=== PATIENT | female | born 1965 | race Caucasian/White ===

== ENCOUNTER 2017-02-01 11:39 | Inpatient (IN) | payer OTHER ==
[~2017-02-01] VITALS: Ht 157.5 cm; Wt 49.9 kg
[2017-02-01 11:47] VITALS: BP 133/59
--- NOTE | 2017-02-01 12:08 | NUR ---
Patient ambulated to bed 5. RN evaluating patient at bedside.
--- NOTE | 2017-02-01 12:10 | NUR ---
51F BIB FAMILY C/O FLU LIKE SYMPTOMS AND GENERALIZED WEAKNESS x 3 DAYS. PT STATES HAS BEEN VOMITING X 2 DAYS, BUT DENIES DIARRHEA AT THIS TIME; PT STATES HAD 1 EPISODE OF VOMITING TODAY; ABDOMEN SOFT, NON-TENDER, ACTIVE BOWEL SOUNDS X 4 QUADRANTS; PT C/O PRESSURE TO RT ANKLE, RADIATES UP RT LEG, 07/21 X 3 DAYS; PT STATES " I MUST HAVE FELL WHEN I WAS VOMITING"; STATES UNSURE IF LOC; NO SWELLING OR OBVIOUS DEFORMITIES NOTED TO RT ANKLE AT THIS TIME; RT CAP REFILL < 3 SECONDS, RT PEDAL PULSE PALPABLE, NO LOSS OF SENSATION TO RT FOOT AT THIS TIME; A&OX4, PERRL, PT DENIES HEADACHE, BLURRY VISION, OR VISION CHANGES AT THIS TIME; BL LUNG SOUNDS CLEAR, RR EVEN/UNLABORED, SKIN IS WARM/DRY/INTACT. PT NOTED W/ SCAR TO RT HIP; HX: RENAL DISEASE. PT RESTING IN BED W/ HOB ELEVATED AND IN LOWEST POSITION; POSITIONED FOR COMFORT; ER MD MADE AWARE OF STATUS. WILL CONTINUE TO MONITOR.
[2017-02-01] MEDS ORDERED: NACL 0.9% 1,000 ML IV ONE (12:38)
[2017-02-01] MEDS ORDERED: ONDANSETRON 4 MG/2 ML VIAL IVP ONE (12:40)
--- NOTE | 2017-02-01 13:22 | NUR ---
XRAY AT BEDSIDE.
--- NOTE | 2017-02-01 13:25 | NUR ---
PT TAKEN TO CT VIA SONIA, ACCOMPANIED BY WEAVING SUPERVISOR AT THIS TIME.
--- NOTE | 2017-02-01 14:00 | NUR ---
Patient appears to be resting comfortably in bed. Vital Signs within normal limits. Respirations even and unlabored. FAMILY AT BEDSIDE. WILL CONTINUE TO MONITOR.
[2017-02-01] MEDS ORDERED: MORPHINE SULFATE 2 MG/ML SYR IVP ONE (14:30)
--- NOTE | 2017-02-01 15:06 | NUR ---
US AT BEDSIDE.
--- NOTE | 2017-02-01 15:15 | NUR ---
Dr. Fernandez Anthony evaluating patient at bedside. (Surgery)
[2017-02-01] MEDS ORDERED: cefTRIAXone 1,000 MG VIAL ONE (15:24)
[2017-02-01] MEDS: NACL 0.9% 1,000 ML IV SCH ×2 (15:36→19:31)
[2017-02-01] MEDS ORDERED: HYDROmorphone 1 MG/ML AMP IVP SCH (15:40)
[2017-02-01] MEDS ORDERED: HYDROmorphone 1 MG/ML AMP IVP ONE (15:40)
[2017-02-01] MEDS ORDERED: ONDANSETRON 4 MG/2 ML VIAL IVP PRN (15:40)
--- NOTE | 2017-02-01 16:06 | NUR ---
REPORT GIVEN TO AMY ALBA AT [facility].
--- NOTE | 2017-02-01 16:17 | NUR ---
Patient will be admitted to care of DR. MCKAY ( DR. LACHELLE VIVAS SURG[facility] CONSULT). Admited to [facility]. Will go to room 120B. Belongings list completed. Report to AMY ALBA.
[2017-02-01 16:35] VITALS: BP 113/64
--- NOTE | 2017-02-01 16:35 | NUR ---
RECEIVED PT ON UNIT VIA [employer], PT IS A/OX4, IV IS ON THE LT ANKLE, PATENT, INTACT, INFUSING WELL, PT HAS AN OLD RIGHT HIP SURGICAL SCARE, SKIN IS INTACT, PT AMBULATES WITH ASSIST, INITIAL ASSESSMENT DONE, NO S/S OF RESPIRATORY DISTRESS OR DISCOMFORT NOTED, DISCUSSED PLAN OF CARE WITH PT, PT VERBALIZED UNDERSTANDING, IS AT BEDSIDE, SAFETY/FALL PRECAUTIONS IN PLACE, ORIENTED PT TO ROOM, CALL LIGHT WITHIN REACH, WILL CONTINUE TO MONITOR.
--- NOTE | 2017-02-01 18:28 | NUR ---
PT SITTING IN BED WATCHING TV. CALL LIGHT WITHIN REACH.
--- NOTE | 2017-02-01 19:25 | NUR ---
ENDORSED PT TO AMY BAUER. FOR CONTINUITY OF CARE, PT STABLE AT THIS TIME.
--- NOTE | 2017-02-01 19:25 | NUR ---
RECEIVED REPORT FROM MORNING SHIFT NURSE AT BEDSIDE, PT IS AAOX4, ABLE TO FOLLOW COMMANDS AND MAKE NEEDS KNOWN. DENIES PAIN, NO SOB/DISTRESS NOTED, BREATHING EVEN AND UNLABORED, ON RA. TELE MONITOR WITH SR. SOFT ABD WITH ACTIVE BOWEL SOUNDS, CURRENTLY ON NPO. IV SITE TO LEFT ANKLE 24GA RUNNING WITH NC. AFEBRILE, SKIN IS INTACT, WARM AND DRY TO TOUCH. ABLE TO MOVE ALL EXTREMITIES, AMBULATE WITH ASSIST. EXPLAINED POC TO PT, PT VERBALIZED UNDERSTANDING, SAFETY MEASURE MAINTAINED, SCDS TO JULIAN.BLE. VSS. CALL LIGHT WITHIN REACH, WILL CONTINUE TO MONITOR.
[2017-02-01 20:00] VITALS: BP 119/62
[2017-02-01] MEDS: MORPHINE SULFATE 2 MG/ML SYR IVP PRN (20:35)
[2017-02-01] MEDS ORDERED: PIPERACILLIN/TAZOBACTAM 3.375 GM in DEXTROSE 5% 50 ML IV SCH (21:00)
--- NOTE | 2017-02-01 21:20 | NUR ---
PT OFF UNIT FOR HIDA SCAN.
[2017-02-01] MEDS ORDERED: PIPERACILLIN/TAZOBACTAM 3.375 GM VIAL IV ONE (21:48)
[2017-02-01] MEDS: PIPER/TAZO 3.375GM/D5W PREMIX 50 ML IV SCH (21:53)
--- NOTE | 2017-02-01 22:45 | NUR ---
PT IS TRANSFERRED BACK TO ROOM VIA WHEELCHAIR. VSS.
--- NOTE | 2017-02-01 23:20 | NUR ---
PT IS OFF UNIT FOR SEC PART OF HIDA SCAN.
--- NOTE | 2017-02-01 23:50 | NUR ---
PT IS BACK TO ROOM.
--- NOTE | 2017-02-02 02:15 | NUR ---
PT C/O SEVERE PAIN TO RIGHT HIP, 10/10, AND COULD NOT REST, MEDICATED AND EDUCATED.
[2017-02-02] MEDS: MORPHINE SULFATE 4 MG/ML SYR IVP PRN ×4 (02:19→20:39)
[2017-02-02 04:00] VITALS: BP 122/67
--- NOTE | 2017-02-02 04:00 | NUR ---
NO CHANGE OF CONDITION AT THIS TIME. VSS.
[2017-02-02] MEDS: PIPER/TAZO 3.375GM/D5W PREMIX 50 ML IV SCH ×3 (04:52→20:39)
[2017-02-02] MEDS: NACL 0.9% 1,000 ML IV SCH ×3 (06:25→23:36)
--- NOTE | 2017-02-02 07:18 | NUR ---
PT IS RESTING IN BED, NO CHANGE OF CONDITION AT THIS TIME, REPORT GIVEN TO MORNING SHIFT NURSE FOR CONTINUE OF CARE.
[2017-02-02 08:00] VITALS: BP 120/75
--- NOTE | 2017-02-02 08:06 | NUR ---
PATIENT HAS BEEN SCREENED AND CATEGORIZED MODERATE NUTRITION RISK. PATIENT WILL BE SEEN WITHIN 3-5 DAYS OF ADMISSION. 02/04/17-02/06/[address]
[2017-02-02] MEDS: MORPHINE SULFATE 2 MG/ML SYR IVP PRN (08:15)
[2017-02-02] MEDS ORDERED: MAG SULF 2000 MG/WATER PREMIX 50 ML IV SCH (10:30)
[2017-02-02 12:00] VITALS: BP 132/63
--- NOTE | 2017-02-02 13:22 | NUR ---
FOLLOWED UP WITH DR. VIVAS REGARDING PT STATUS, IF PT WILL HAVE SURGERY TODAY. HE SAID HE'S NOT PLANNING ON DOING SURGERY WITH THE PT TODAY. AND PT CAN RESUME HER DIET.
--- NOTE | 2017-02-02 13:26 | NUR ---
CALLED DR. MCKAY' OFFICE FOR A DIET ORDER. AWAITING CALL BACK.
--- NOTE | 2017-02-02 13:32 | NUR ---
DR. MCKAY CALLED BACK WITH NEW ORDER FOR REGULAR DIET. PT MADE AWARE.
--- NOTE | 2017-02-02 16:00 | NUR ---
PT WAS SEEN BY DR NAPOLES EXPLAINED TO PT REASON FOR NPO AND THAT DR HERNANDEZ (SURGEON) IS COMING TO SEE PT. PT VERBALIZED UNDERSTANDING. Addendum: 02/02/17 at 1755 by Kaylee White RN DISREGARD ABOVE DOCUMENTATION. WRONG PT.
[2017-02-02 16:11] VITALS: BP 141/69
--- NOTE | 2017-02-02 19:35 | NUR ---
PT ASLEEP. AWAKEN TO VOICE. NO SOB NOTED. AND DENIES PAIN AT THIS TIME. ENDORSED TO UPCOMING SHIFT ON STABLE CONDITION.
--- NOTE | 2017-02-02 19:36 | NUR ---
RECD. RESTING IN BED, AWAKE, A/OX4. RESPIRATION EVEN AND UNLABORED. IV OF NS AT 125 ML/HR INFUSING, LEFT ANKLE G24. PAIN IN THE RIGHT HIP 11/21, WILL MEDICATE ORDERED. PLAN OF CARE FOR THE SHIFT DISCUSSED. VERBALIZED UNDERSTANDING. SAFETY MEASURES ENFORCED.
--- NOTE | 2017-02-02 20:00 | NUR ---
Patient's Plan of Care was discussed and reviewed with HAMMER ADJUSTER: CHRISTOPHER SMALL
[2017-02-02] MEDS: MAGNESIUM OXIDE 400 MG TAB PO SCH (21:00)
--- NOTE | 2017-02-02 21:05 | NUR ---
ASSISTED WITH BED REILLY, ABLE TO VOID 100 ML OF DARK YELLOW URINE.
[2017-02-03] VITALS: BP 129/62
--- NOTE | 2017-02-03 | NUR ---
ASSISTED WITH BEDPAN, WIPES GIVEN, INDEPENDENT, ABLE TO DO SELF STEFANO CARE.
[2017-02-03 02:52] VITALS: BP 135/62
--- NOTE | 2017-02-03 03:00 | NUR ---
SLEEPING COMFORTABLY IN BED.
[2017-02-03] MEDS: MORPHINE SULFATE 4 MG/ML SYR IVP PRN (03:16)
[2017-02-03] MEDS: PIPER/TAZO 3.375GM/D5W PREMIX 50 ML IV SCH ×2 (05:06→13:05)
[2017-02-03 05:17] VITALS: BP 115/67
[2017-02-03] MEDS: MORPHINE SULFATE 2 MG/ML SYR IVP PRN ×2 (05:21→10:03)
--- NOTE | 2017-02-03 06:30 | NUR ---
CONDITION REMAIN STABLE. WILL ENDORSE TO AM NURSE FOR CONTINUITY OF CARE.
--- NOTE | 2017-02-03 07:08 | NUR ---
ENDORSED TO AMY KING FOR CONTINUITY OF CARE.
--- NOTE | 2017-02-03 07:30 | NUR ---
RECEIVED REPORT FROM NIGHT NURSE. PT RESTING IN BED, AOX4, ABLE TO VERBALIZE NEEDS. IV ACCESS ASYMPTOMATIC, PATENT AND INTACT. IVF INFUSING WELL. INITIAL ASSESSMENT COMPLETED. RIGHT HIP SCAR NOTED. SCDS IN PLACE. ASSISTED PT WITH ADLS, PT TOLERATED WELL. NO CP, SOB OR ACUTE DISTRESS. SAFETY MEASURES IN PLACE. CALL LIGHT WITHIN REACH. WILL CONTINUE TO MONITOR. DISCUSSED AND REVIEWED PLAN OF CARE WITH PT, PT VERBALIZES UNDERSTANDING.
[2017-02-03] MEDS: NACL 0.9% 1,000 ML IV SCH ×2 (07:36→15:36)
[2017-02-03 08:00] VITALS: BP 126/63
[2017-02-03] MEDS: MAGNESIUM OXIDE 400 MG TAB PO SCH (09:00)
[2017-02-03] MEDS ORDERED: MAG SULF 2000 MG/WATER PREMIX 50 ML IV ONE (09:30)
[2017-02-03] MEDS ORDERED: HYDROcodone/APAP 10/325 MG 1 TAB TAB PO PRN (09:35)
[2017-02-03] MEDS ORDERED: HYDROcodone/APAP 5/325 MG 1 TAB TAB PO PRN (09:35)
[2017-02-03] MEDS ORDERED: MAG SULF 2000 MG/WATER PREMIX 50 ML IV SCH (09:39)
[2017-02-03] MEDS ORDERED: ACETAMINOPHEN-H1 TA3 PO (09:53)
--- NOTE | 2017-02-03 10:12 | NUR ---
CM NOTE CONCURRENT REVIEW SENT TO [facility] FAX# [phone] PH# RACHEL [phone] MARCH [phone]
--- NOTE | 2017-02-03 10:15 | NUR ---
PT SEEN BY DR MCKAY, DISCUSSED PT CONDITION AND DC PLAN. NEW ORDERS ACKNOWLEDGED AND CARRIED OUT. VSS. MEDICATED WITH MORPHINE IVP FOR C/O RIGHT HIP PAIN, SEE PAIN ASSESSMENT. MAGRIDER ADMINISTERED ORDERED WITH EDUCATION. WILL CONTINUE TO MONITOR PT.
[2017-02-03] MEDS: MAG SULF 2000 MG/WATER PREMIX 100 ML IV SCH ×2 (10:16→14:06)
--- NOTE | 2017-02-03 13:18 | NUR ---
DUE MEDICATION ADMINISTERED WITH EDUCATION. PT VERBALIZES UNDERSTANDING. PT TOLERATED WELL. IVF INFUSING WELL. PT C/O NAUSEA. ZOFRAN ADMINISTERED NEEDED. PT TOLERATED WELL. ASSISTED PT WITH ADLS. ALL NEEDS MET. SAFETY MEASURES ENSURED. CALL LIGHT WITHIN REACH. WILL CONTINUE TO MONITOR.
--- NOTE | 2017-02-03 14:08 | NUR ---
SECOND BAG OF IV MAGNESIUM ADMINISTERED WITH EDUCATION PER DR MCKAY. IVF INFUSING WELL. PT TOLERATED WELL. ASSISTED PT WITH ADLS. ALL NEEDS MET. SAFETY MEASURES ENSURED. CALL LIGHT WITHIN REACH. WILL CONTINUE TO MONITOR.
[2017-02-03 16:00] VITALS: BP 125/82
[2017-02-03 16:36] VITALS: BP 125/82
--- NOTE | 2017-02-03 17:25 | NUR ---
DISCHARGE INSTRUCTIONS AND EDUCATION GIVEN TO PT. PT VERBALIZES UNDERSTANDING. IV SITE REMOVED, CANNULA INTACT. PT TOLERATED WELL. NO C/O CP, SOB OR ACUTE DISTRESS. CONDITION STABLE. PT SIGNIFICANT OTHER AT BEDSIDE, ACCOMPANYING PT. BELONGINGS CHECKED. PT DISCHARGED VIA WHEELCHAIR.
[2017-02-03] MEDS ORDERED: MAGNESIUM OXIDE 400 MG TAB PO SCH (21:00)
== END 2017-02-03 17:25 | disposition home or self-care (01) ==
LOC: MED 11:39 → MTU 15:40
PROVIDERS: ADMIT Hospitalist; ATTEND Hospitalist
DX: K81.0 Acute cholecystitis (principal); R64 Cachexia; K85.10 Biliary acute pancreatitis without necrosis or infection; N39.0 Urinary tract infection, site not specified; Z93.6 Other artificial openings of urinary tract status; N18.9 Chronic kidney disease, unspecified; G89.29 Other chronic pain; S93.401A Sprain of unspecified ligament of right ankle, initial encounter; R74.0 Nonspecific elevation of levels of transaminase and lactic acid dehydrogenase [LDH]; E80.6 Other disorders of bilirubin metabolism; K81.1 Chronic cholecystitis; M25.551 Pain in right hip; R79.89 Other specified abnormal findings of blood chemistry; R19.7 Diarrhea, unspecified; Z87.442 Personal history of urinary calculi; Z88.2 Allergy status to sulfonamides; Z88.6 Allergy status to analgesic agent; Y93.89 Activity, other specified; Y92.89 Other specified places as the place of occurrence of the external cause; Z87.81 Personal history of (healed) traumatic fracture; Z68.20 Body mass index [BMI] 20.0-20.9, adult

== ENCOUNTER 2017-02-05 19:08 | Emergency (ER) | payer OTHER ==
[~2017-02-05] VITALS: Ht 157.5 cm; Wt 49.9 kg
[~2017-02-05 19:08] MED LIST: ACET-9525 PO
[2017-02-05 20:06] VITALS: BP 141/62
--- NOTE | 2017-02-05 21:07 | NUR ---
PT TAKEN TO OF2
--- NOTE | 2017-02-05 21:27 | NUR ---
Dr. Allen evaluating patient
[2017-02-05] MEDS ORDERED: fentaNYL 0.05 MG/ML VIAL IM ONE ×2 (21:35→22:35)
--- NOTE | 2017-02-05 21:44 | NUR ---
PT MOVED TO BED 4
[2017-02-05 22:05] LABS: BASOPHILS # (AUTO) 0.2 K/uL (0.00-0.22); BASOPHILS % (AUTO) 3.7 % (0.0-2.0); EOSINOPHILS # (AUTO) 0.1 K/uL (0-0.4); EOSINOPHILS % (AUTO) 1.3 % (0.0-4.0); HEMATOCRIT 43.4 % (36-48); HEMOGLOBIN 13.9 g/dL (12.0-16.0); LYMPHOCYTES % (AUTO) 21.4 % (20.5-51.1); MEAN CORPUSCULAR HEMOGLOBIN 34 pg (27-31); MEAN CORPUSCULAR HGB CONC 32 g/dL (33-37); MEAN CORPUSCULAR VOLUME 105 fL (80-94); MONOCYTES # (AUTO) 0.6 K/uL (0.8-1.0); MONOCYTES % (AUTO) 12.1 % (1.7-9.3); NEUTROPHILS # (AUTO) 2.7 K/uL (1.8-7.7); NEUTROPHILS % (AUTO) 61.5 % (42.2-75.2); PLATELET COUNT (AUTO) 247 K/uL (140-450); RED BLOOD CELL COUNT(AUTO) 4.12 MIL/uL (4.20-5.40); RED CELL DISTRIBUTION WIDTH 15.9 % (11.6-13.7); WHITE BLOOD COUNT (AUTO) 4.6 K/uL (4.8-10.8)
--- NOTE | 2017-02-05 22:17 | NUR ---
Ultrasound at bedside.
--- NOTE | 2017-02-05 22:27 | NUR ---
51Y/F PATIENT BIB FAMILY TO ED WITH C/O RT. LEG PAIN. PT. ATTES, REDNESS, SWELLING, PAIN ON HER RT LEG, LEFT LEG PAIN,SINCE THURSDAY, SHE WAS D/C LAST . DENIES N/V/D; SKIN IS PINK/WARM/DRY, BLE EDEMA +2 WITH MILD REDNESS; AAOX4 WITH EVEN AND STEADY GAIT; LUNGS CLEAR BL; HR EVEN AND REGULAR; PT DENIES ANY FEVER, CP, SOB, OR COUGH AT THIS TIME; PATIENT STATES PAIN OF 10/10 AT THIS TIME; VSS; PATIENT POSITIONED FOR COMFORT; HOB ELEVATED; BEDRAILS UP X2; BED DOWN. ER MD MADE AWARE OF PT STATUS.
[2017-02-05 22:29] LABS: ALBUMIN 2.7 g/dL (3.4-5.0); ANION GAP 11.5 (8-16); CALCIUM 9.5 mg/dL (8.5-10.1); CARBON DIOXIDE 28.2 mmol/L (21-32); CREATININE 0.6 mg/dL (0.6-1.3); POTASSIUM 3.7 mmol/L (3.5-5.1); TOTAL BILIRUBIN 0.8 mg/dL (0.0-1.0); TOTAL PROTEIN, SERUM 7.6 g/dL (6.4-8.2)
[2017-02-05 22:30] LABS: INR 1.3 (0.8-1.2); PARTIAL THROMBOPLASTIN TIME 25.6 secs (22-35.6); PROTHROMBIN TIME 12.3 secs (10.8-13.4)
[2017-02-05 23:18] VITALS: BP 167/79
--- NOTE | 2017-02-05 23:19 | NUR ---
Patient discharged with v/s stable. Written and verbal after care instructions given and explained. Patient alert, oriented and verbalized understanding of instructions. Ambulatory with steady gait. All questions addressed prior to discharge. ID band removed. Patient advised to follow up with PMD. Rx of TRAMADOL 50 MG given. Patient educated on indication of medication including possible reaction and side effects. Opportunity to ask questions provided and answered.
== END 2017-02-05 23:19 | disposition home or self-care (01) ==
LOC: MED 19:08
DX: R60.9 Edema, unspecified (principal); I10 Essential (primary) hypertension; Z88.2 Allergy status to sulfonamides; Z88.6 Allergy status to analgesic agent
CPT/HCPCS: 36415; 80053; 81002; 81025; 85025; 85610; 85730; 93971; 96372; 99285; J3010; Q0092